=== PATIENT | male | born 1995 | race Caucasian/White ===

== ENCOUNTER 2022-03-16 10:48 | Emergency (ER) | payer OTHER, SELFPAY ==
--- NOTE | ~2022-03-16 | XR_ITS ---
EXAMINATION: XR chest 2V DATE: 03/16/2022 11:16 INDICATION: Chest congestion TECHNIQUE: PA and lateral views of the chest are obtained. COMPARISON: 01/12/2018 FINDINGS: The lungs are free of acute opacities. No pleural effusion or pneumothorax. The cardiomedia stinal silhouette is normal. The visualized bones and soft tissues are unremarkable. IMPRESSION: 1. No acute cardiopulmonary abnormality. Reviewed, dictated and finalized at location B.
[2022-03-16 11:00] VITALS: BP 150/91; PULSE 89; RESP 16; TEMP 35.6; O2SAT 100
--- NOTE | 2022-03-16 11:10 | ED.URI ---
HPI - URI/Sore Throat General Chief Complaint: Dental/Oral Stated Complaint: Left Side Face Pain, Chest Pain Time Seen by Provider: 03/16/22 11:05 History of Present Illness HPI Narrative: Saleem Bradford is a 26 yo male with no PMH who comes to [facility] with complaints that are vague about feeling like his left eye is swollen his chest feels heavy, feels weak. He states this been going on for 2 days. No fever no nausea vomiting diarrhea. 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 Denies having COVID. Plan is due chest x-ray and COVID test Related Data Allergies Allergy/AdvReac Type Severity Reaction Status Date / Time No Known Allergies Allergy Verified 03/16/22 11:01 Review of Systems Review of Systems: CONSTITUTIONAL: Denies fever, chills, sweats. Weakness EYES: Denies visual changes, redness, discharge. Feels like left eye swollen ENT: Denies rhinorrhea, congestion, sore throat, otalgia. CARDIOVASCULAR: Denies chest pain, palpitations, edema. RESPIRATORY: Denies dyspnea, wheezing, cough, chest heaviness GASTROINTESTINAL: Denies abdominal pain, nausea, vomiting, diarrhea. GENITOURINARY: Denies dysuria, hematuria, abnormal discharge SKIN: Denies rash or itching. NEUROLOGIC: Denies numbness, or focal weakness. PSYCHIATRIC: Denies anxiety or depression. [facility] Social History Social History (Updated 03/16/22 @ 11:15 by Albina Pat CNP) Smoking status: Never smoker Alcohol intake: former Substance use: former Comments At time of signature, I agree with nursing past medical, surgical, social and family history. There is no relevant family history pertinent to the presenting complaint. Exam Narrative: GENERAL: This is a well-nourished, well-developed patient, in no apparent distress. HEAD: normocephalic, atraumatic. EYES: Sclera clear/white. Vision is grossly intact. He is not appear to have any periorbital edema EARS: External ears normal, auditory canals clear and without drainage, TMs normal without perforation. Hearing grossly intact. NOSE: External nose normal without nasal discharge, nares without redness, no rhinorrhea. States that he feels like his eye is swollen and the left side of his face is swollen but does not appear that way denies rash no rash apparent no lesions apparent on skin, no hypersensitivity or pain reported THROAT: Mucous membranes moist, posterior pharynx mild erythema, no exudate NECK: Neck supple, non-tender CARDIOVASCULAR: Regular rate and rhythm without murmurs, gallops, or rubs. RESPIRATORY: Clear to auscultation. Breath sounds equal bilaterally. No wheezes, rales, or rhonchi. GASTROINTESTINAL: Not done SKIN: warm, intact with no suspicious lesions or rash, good texture and turgor. NEURO: awake, alert, and oriented to person, place and time. There were no obvious focal neurologic abnormalities. Steady gait EXTREMITIES: Normal range of motion. BACK: Nontender without deformity Course Course Emergency Course: Patient comes with feeling weak and chest heaviness; feels like left eye is swollen. Chest x-ray done -no acute cardiopulmonary abnormality, lungs are free of opacities no pleural effusion COVID test-negative Patient treated for sinusitis-started on prednisone and Zithromax given work excuse for today Level of Care: Express Care Visit Vital Signs Vital signs: Vital Signs Temperature 96.0 F L 03/16/22 11:00 Pulse Rate 89 03/16/22 11:00 Respiratory Rate 16 03/16/22 11:00 Blood Pressure 150/91 H 03/16/22 11:00 Pulse Oximetry 100 03/16/22 11:00 Oxygen Delivery Room Air 03/16/22 11:00 Temperature 96.0 F L 03/16/22 11:00 Pulse Rate 89 03/16/22 11:00 Respiratory Rate 16 03/16/22 11:00 Blood Pressure 150/91 H 03/16/22 11:00 Pulse Oximetry 100 03/16/22 11:00 Oxygen Delivery Room Air 03/16/22 11:00 MDM - URI/Sore Throat Differential Diagnosis Differential diagnosis: Likely upper respirato
== END 2022-03-16 11:41 | disposition home or self-care (01) ==
PROVIDERS: Emergency Provider Nurse Practitioner
DX: J01.00 Acute maxillary sinusitis, unspecified (principal); Z20.822 Contact with and (suspected) exposure to COVID-19
CPT/HCPCS: 71046; 87426; 99213; C9803; G0463

== ENCOUNTER 2023-02-21 12:18 | Emergency (ER) | payer BC, SELFPAY ==
--- NOTE | ~2023-02-21 | XR_ITS ---
EXAMINATION: XR chest 2V DATE: 02/21/2023 12:55 INDICATION: Chest pain and shortness of breath TECHNIQUE: PA and lateral views of the chest are obtained. COMPARISON: 03/16/2022 FINDINGS: The lungs are free of acute opacities. No pleural effusion or pneumothorax. The cardiomedia stinal silhouette is normal. The visualized bones and soft tissues are unremarkable. IMPRESSION: 1. No acute cardiopulmonary abnormality. Reviewed, dictated and finalized at location A.
--- NOTE | 2023-02-21 12:19 | ECG_ITS ---
Measurements Intervals [place] Rate: 89 P: 46 DE: 171 QRS: 5 QRSD: 110 T: 49 QT: 330 QTc: 403 Interpretive Statements SINUS RHYTHM NO PREVIOUS ECG AVAILABLE FOR COMPARISON Electronically Signed On 02-22-2023 11:08:51 CDT by Caio Abarca M.D.
[2023-02-21 13:00] LABS: Basophils Percent Auto 0.2 % (0.2-1.2); Eosinophils Absolute Auto 0.1 K/mm3 (0-0.3); Eosinophils Percent Auto 0.9 % (0-4.4); Hematocrit 51.3 % (42.0-52.0); Hemoglobin 17.4 g/dL (14.0-18.0); Immature Granulocyte Absolute 0.06 K/mm3 (0.00-0.031); Immature Granulocyte Percent A 0.5 % (0-0.5); Lymphocytes Absolute Auto 2.55 K/mm3 (0.9-3.2); Lymphocytes Percent Auto 22.2 % (18.3-44.2); Mean Corpuscular HGB Conc 33.9 g/dl (32-36); Mean Corpuscular Hemoglobin 30.4 pg (26-34); Mean Corpuscular Volume 89.5 fl (80-100); Mean Platelet Volume 8.7 fl (7.4-10.4); Monocytes Absolute Auto 1.4 K/mm3 (0.1-0.6); Monocytes Percent Auto 12.1 % (2.6-8.5); Neutrophils Absolute Auto 7.4 K/mm3 (1.3-6.7); Neutrophils Percent Auto 64.1 % (45.5-73.1); Platelet Count Result 317 k/mm3 (150-375); Red Blood Count 5.73 M/mm3 (4.6-6.20); Red Cell Distribution Width 12.5 % (11.5-14.5); White Blood Count 11.5 K/mm3 (4.5-10.0)
[2023-02-21 13:10] LABS: Alanine Aminotransferase 40 U/L (6-50); Anion Gap 9 mmol/L (8-16); Aspartate Amino Transferase 35 U/L (17-59); Bilirubin,Total 0.7 mg/dL (0.2-1.3); Blood Urea Nitrogen 10 mg/dL (9-20); Calcium 9.8 mg/dL (8.4-10.2); Carbon Dioxide 27 mmol/L (22-30); Chloride 103 mmol/L (98-107); Estimated Glomerular Filt Rate > 60; Glucose 97 mg/dL (65-110); Potassium 3.7 mmol/L (3.4-5.0); Sodium 139 mmol/L (137-145)
[2023-02-21 13:11] LABS: Albumin Level 5.2 g/dL (3.5-5.1); Alkaline Phosphatase 89 U/L (38-126); Lipase 53 U/L (23-300)
[2023-02-21 13:19] VITALS: BP 149/94; PULSE 90; RESP 18; TEMP 36.6; O2SAT 100
[2023-02-21 13:21] LABS: Troponin I < 0.012 ng/mL (0.000-0.034)
[2023-02-21 13:25] LABS: INR 1.1; Prothrombin Time 14.7 Seconds (11.1-14.7)
[2023-02-21 13:26] LABS: Partial Thromboplastin Time 33.8 SECONDS (22.3-36.8)
--- NOTE | 2023-02-21 14:00 | PC.NURSE ---
pt sitting in vestibule. family up to desk asking about wait time. advised of ed status. states pt needs to lay down. made aware no beds were available. then voices pt wants to get his test results and leave. made aware that pt is free to leave facility but will have to follow up with pmd to obtain testing results. pt seen walking out of department with family completely upright. no acute distress noted.
== END 2023-02-21 15:18 | disposition left against medical advice (07) ==
LOC: ANHED 15:02
PROVIDERS: Emergency Provider Emergency Medicine
DX: R07.9 Chest pain, unspecified (principal)
CPT/HCPCS: 36415; 71046; 80053; 83690; 84484; 85025; 85610; 85730; 93005; 99199

== ENCOUNTER 2024-10-14 10:23 | Emergency (ER) | payer BC, SELFPAY ==
--- NOTE | ~2024-10-14 | XR_ITS ---
XR chest 2V Ordering provider: Miguel Navarrete MD History: 29 years Male with . sob . Comparison: None. FINDINGS: MEDIASTINUM: The cardiac silhouette is not enlarged. LUNGS: No infiltrates, effusions or pneumothorax. OTHER: No free air under the diaphragm. IMPRESSION: No acute cardiopulmonary pathology. Reviewed, dictated and finalized at location A.
--- OUTSIDE RECORDS SUMMARY | 2024-10-14 10:25 | XMS_ITS | Clinical Summary ---
Author Organization [facility] Address [address] [place] [address] Care Team Providers Care Foreign Language Interpreter Name Role Phone Unavailable Primary Care Provider Unavailabl e Social History Tobacco Use Types Packs/Day Years Used Date Smoking Tobacco: Never Assessed Sex and Gender Information Value Date Recorded Sex Assigned at Not on file Legal Sex Male 6:30 PM CDT Gender Identity Not on file Sexual Orientation Not on file Plan of Treatment Health Maintenance Due Date Last Done Comments Annual Physical 1997 Hepatitis C 2012 DTaP, Tdap and Td Vaccines ( 1 - Tdap) 2013 Hepatitis B Vaccines (1 of 3 - 19+ 3-dose series) 2013 COVID-19 Vaccine (2023-2 5 season) 2024 HPV Vaccines Aged Out No longer eligi ble based on patient's age to complete this topic Meningococcal B Vaccine Aged Out No l onger eligible based on patient's age to complete this topic Meningococcal Vaccine Aged Out No chevy yamil eligible based on patient's age to complete this topic Pneumococcal Vaccine: Pediat rics (0 to 5 Years) and At-Risk Patients (6 to 49 Years) Aged Out No longer eligible b ased on patient's age to complete this topic RSV Immunizations Under 20 Months Aged Out No longer eligible based on patient's age to complete this topic
--- NOTE | 2024-10-14 10:36 | ECG_ITS ---
Test Date: 2024-10-14 10:39:28 Measurements Intervals [place] Rate: 80 P: 48 FL: 170 QRS: -3 QRSD: 88 T: 55 QT: 326 QTc: 377 Interpretive Statements SINUS RHYTHM No previous ECG available for comparison BASELINE ARTIFACT- I, II, AVR NORMAL ECG Electronically Signed On 10-14-2024 14:46:36 CDT by Jacinto Grady D.O.
[2024-10-14 10:37] VITALS: BP 143/95; PULSE 80; RESP 20; TEMP 37.1; O2SAT 100
[2024-10-14 11:07] VITALS: BP 163/93; PULSE 94; RESP 28; O2SAT 99
[2024-10-14 11:16] VITALS: BP 146/96; PULSE 91; RESP 17; O2SAT 98
--- OUTSIDE RECORDS SUMMARY | 2024-10-14 11:24 | XMS_ITS | Clinical Summary ---
Author Organization [facility] Address [address] [place] [address] Care Team Providers Care Sales Department Manager Name Role Phone Unavailable Primary Care Provider [...]
[2024-10-14 11:26] LABS: Basophils Percent Auto 0.1 % (0.2-1.2); Eosinophils Percent Auto 0.2 % (0-4.4); Hemoglobin 17.5 g/dL (14.0-18.0); Immature Granulocyte Absolute 0.05 K/mm3 (0.00-0.031); Immature Granulocyte Percent A 0.6 % (0-0.5); Lymphocytes Absolute Auto 2.13 K/mm3 (0.9-3.2); Lymphocytes Percent Auto 24.5 % (18.3-44.2); Mean Corpuscular HGB Conc 33.7 g/dl (32-36); Mean Corpuscular Hemoglobin 30.4 pg (26-34); Mean Corpuscular Volume 90.3 fl (80-100); Mean Platelet Volume 8.6 fl (7.4-10.4); Monocytes Absolute Auto 0.7 K/mm3 (0.1-0.6); Monocytes Percent Auto 8.4 % (2.6-8.5); Neutrophils Absolute Auto 5.8 K/mm3 (1.3-6.7); Neutrophils Percent Auto 66.2 % (45.5-73.1); Platelet Count Result 311 k/mm3 (150-375); Red Blood Count 5.76 M/mm3 (4.6-6.20); Red Cell Distribution Width 12.4 % (11.5-14.5); White Blood Count 8.7 K/mm3 (4.5-10.0)
[2024-10-14 11:36] LABS: Alanine Aminotransferase 45 U/L (6-50); Albumin Level 4.9 g/dL (3.5-5.1); Alkaline Phosphatase 75 U/L (38-126); Anion Gap 10 mmol/L (4-12); Aspartate Amino Transferase 36 U/L (17-59); Bilirubin,Total 0.8 mg/dL (0.2-1.3); Blood Urea Nitrogen 10 mg/dL (9-20); Calcium 9.7 mg/dL (8.4-10.2); Carbon Dioxide 23 mmol/L (22-30); Chloride 106 mmol/L (98-107); Estimated Glomerular Filt Rate > 60; Glucose 111 mg/dL (65-110); Potassium 3.8 mmol/L (3.4-5.0); Sodium 139 mmol/L (137-145)
[2024-10-14 11:42] LABS: INR 1.1; Partial Thromboplastin Time 33.4 Seconds (22.3-36.8)
[2024-10-14] MEDS: diazePAM INJ (*CRX) 10 MG/2 ML SYRINGE 5 MG IV PUSH (12:21)
[2024-10-14 12:23] VITALS: BP 140/98; PULSE 77; RESP 21; O2SAT 99
[2024-10-14 12:39] LABS: Troponin I < 0.012 ng/mL (0.000-0.034)
--- NOTE | 2024-10-14 13:48 | ED_ITS ---
HPI - General Adult General Chief complaint: Shortness of Breath/Dyspnea Stated complaint: sent by for SOB/panic attack Time Seen by Provider: 10/14/24 11:16 History of Present Illness HPI narrative: This is a 29-year-old male presenting for increased anxiety. Patient's younger brother at the age of 25 several days ago. Since then the patient has been having panic attacks increased anxiety. Panic attacks are associated with chest tightness and difficulty breathing. Patient has never had panic attacks in the past. He does not have chest pain in between episodes. It is not associated with exertion or diaphoresis. No other symptoms. Patient is very distressed about his younger brother. Related Data Allergies Allergy/AdvReac Type Severity Reaction Status Date / Time morphine Allergy Itching Verified 10/14/24 10:44 [facility] Social History Social History Smoking status: Never smoker Alcohol intake: former Substance use: former Exam 2 Narrative: APPEARANCE: No apparent distress. Head: atraumatic. EYES: EOMI, NOSE: Atraumatic NECK: Trachea midline RESPIRATORY: No increased rate of breathing CTAB CARDIOVASCULAR: RRR, no peripheral edema ABDOMINAL: Non-distended soft non MUSCULOSKELETAl: No obvious deformities NEURO: Alert. Moving 4/4 extremities SKIN:: Warm, dry. Normal color PSYCHIATRIC: Normal affect Course Vital Signs Vital signs: Vital Signs Temperature 98.7 F 10/14/24 10:37 Pulse Rate 80 10/14/24 10:37 Respiratory Rate 20 10/14/24 10:37 Blood Pressure 143/95 H 10/14/24 10:37 Pulse Oximetry 100 10/14/24 10:37 Oxygen Delivery Room Air 10/14/24 10:37 Temperature 98.7 F 10/14/24 10:37 Pulse Rate 77 10/14/24 12:23 Respiratory Rate 21 H 10/14/24 12:23 Blood Pressure 140/98 H 10/14/24 12:23 Pulse Oximetry 99 10/14/24 12:23 Oxygen Delivery Room Air 10/14/24 11:16 Medical Decision Making [facility] Narrative Medical decision making narrative: -Course: 29-year-old male presenting with chest tightness in the breathing associated with panic attacks. His recent a younger brother or his trigger for his symptoms. He is given Valium with some relief. Chest pain workup was negative. Patient discharged follow-up with primary care physician. Given return precautions -DDX includes but is not limited to: Anxiety, panic attacks, grief reaction, adjustment disorder, ACS pneumonia pneumothorax Vital Signs Vital Signs: Vital Signs Temperature 98.7 F 10/14/24 10:37 Pulse Rate 80 10/14/24 10:37 Respiratory Rate 20 10/14/24 10:37 Blood Pressure 143/95 H 10/14/24 10:37 Pulse Oximetry 100 10/14/24 10:37 Oxygen Delivery Room Air 10/14/24 10:37 Temperature 98.7 F 10/14/24 10:37 Pulse Rate 77 10/14/24 12:23 Respiratory Rate 21 H 10/14/24 12:23 Blood Pressure 140/98 H 10/14/24 12:23 Pulse Oximetry 99 10/14/24 12:23 Oxygen Delivery Room Air 10/14/24 11:16 Lab Data 10/14/24 11:18 10/14/24 11:18 Labs: Lab Results 10/14/24 Range/Units 11:18 WBC 8.7 (4.5-10.0) K/mm3 RBC 5.76 (4.6-6.20) M/mm3 Hgb 17.5 (14.0-18.0) g/dL Hct 52.0 (42.0-52.0) % MCV 90.3 (80-100) fl MCH 30.4 (26-34) pg MCHC 33.7 (32-36) g/dl RDW 12.4 (11.5-14.5) % Plt Count 311 (150-375) k/mm3 MPV 8.6 (7.4-10.4) fl Immature Gran % (Auto) 0.6 H (0-0.5) % Neut % (Auto) 66.2 (45.5-73.1) % Lymph % (Auto) 24.5 (18.3-44.2) % [place] % (Auto) 8.4 (2.6-8.5) % Eos % (Auto) 0.2 (0-4.4) % Baso % (Auto) 0.1 L (0.2-1.2) % Lymph # (Auto) 2.13 (0.9-3.2) K/mm3 [place] # (Auto) 0.7 H (0.1-0.6) K/mm3 Eos # (Auto) 0.0 (0-0.3) K/mm3 Baso # (Auto) 0.0 (0.0-0.1) K/mm3 Abs Immat Gran (auto) 0.05 H (0.00-0.031) K/mm3 Absolute Neuts (auto) 5.8 (1.3-6.7) K/mm3 Absolute Nucleated RBC 0.000 (0.0-0.012) K/mm3 Nucleated RBC % 0.0 (0.0-0.2) % PT 15.0 H (11.1-14.7) Seconds INR 1.1 APTT 33.4 (22.3-36.8) Seconds Sodium 139 (137-145) mmol/L Potassium 3.8 (3.4-5.0) mmol/L Chloride 106 (98-107) mmol/L Carbon Dioxide 23 (22-30) mmol/L Anion Gap 10 (4-12) mmol/L BUN 10 (9-20) mg/dL Creatinine 0.69 L (0.7-1.3) mg/dL Estim Creat Clear Calc Not Reportable Estimated GFR > 60 (59 - ) Glucose 111 H (65-110) mg/dL Calcium 9.7 (8.4-10.2) mg/dL Total Bilirubin 0.8 (0.2-1.3) mg/dL AST 36 (17-59) U/L ALT 45 (6-50) U/L Alkaline Phosphatase 75 (38-126) U/L Troponin I < 0.012 (0.000-0.034) ng/mL Total Protein 8.0 (6.3-8.2) g/dL Albumin 4.9 (3.5-5.1) g/dL Discharge Plan Discharge Clinical Impression: Grief, Anxiety Patient Disposition: Home Condition: Stable Instructions: Antibiotic Form, Grief and Loss (ED), Anxiety (ED) Additional Instructions: You were seen in the emergency department for increased anxiety and grief. Please follow-up with your primary care physician for further management. Return to ED if you develop chest pain difficulty breathing or thoughts of harming herself or others. Patient Language: Uzbek Prescriptions: New hydroxyzine HCl 25 mg tablet 25 mg PO TID PRN (Reason: anxiety) Qty: 60 0RF No Action azithromycin [Zithromax Z-Calin] 250 mg tablet See Rx Instructions .ROUTE .COMPLEX Qty: 6 0RF Rx Instructions: For 250 mg dose pack: take 500 mg today (day 1), then 250 mg for 4 days (days 2-5) prednisone 20 mg tablet 40 mg PO DAILY Qty: 10 0RF Follow-up/Referrals: Mason,Robert Marin MD [Primary Care Provider] - 1 Week (Anxiety/greif)
[2024-10-14 14:03] VITALS: BP 144/97; PULSE 90; RESP 22; O2SAT 100
== END 2024-10-14 14:11 | disposition home or self-care (01) ==
PROVIDERS: Emergency Provider Emergency Medicine; PCP Family Medicine
DX: F43.22 Adjustment disorder with anxiety (principal)
CPT/HCPCS: 36415; 71046; 80053; 84484; 85025; 85610; 85730; 93005; 96374; 99284; J3360